=== PATIENT | female | born 1950 | race Caucasian/White ===

== ENCOUNTER 2019-06-01 15:04 | Inpatient (IN) | payer MEDICARE, BC ==
[~2019-06-01] VITALS: Ht 162.6 cm; Wt 102.1 kg
[2019-06-01] MEDS ORDERED: LOVA40 (15:13)
[2019-06-01 16:23] LABS: BASOPHILS ABSOLUTE AUTO 0.04 K/mm3 (0.00-0.23); BASOPHILS PERCENT AUTO 0 % (0-2); EOSINOPHILS PERCENT AUTO 1 % (0-6); Hematocrit 41.5 % (33.0-51.0); Hemoglobin 13.5 g/dL (11.5-16.0); IMMATURE GRAN ABSOLUTE AUTO 0.05 K/mm3 (0.00-0.10); IMMATURE GRAN PERCENT AUTO 1 % (0-1); LYMPHOCYTES ABSOLUTE AUTO 1.16 K/mm3 (0.84-5.20); LYMPHOCYTES PERCENT AUTO 11 % (21-46); MONOCYTES PERCENT AUTO 6 % (4-13); Mean Corpuscular HGB 30.7 pg (26.0-34.0); Mean Corpuscular HGB Conc 32.5 g/dL (31.5-36.5); Mean Corpuscular Volume 94 fL (80-100); Mean Platelet Volume 10.6 fL (9.1-12.4); NEUTROPHILS PERCENT AUTO 81 % (41-73); Platelet Count 182 K/mm3 (150-400); RDW Coefficient Variation 12.4 % (11.7-14.2); RDW Standard Deviation 42.7 fL (35.1-46.3); White Blood Cell Count 10.35 K/mm3 (4.00-11.30)
[2019-06-01 16:50] LABS: Albumin, Blood 3.9 g/dL (3.4-5.0); Albumin/Globulin Ratio 1.3 (0.8-1.8); Bilirubin, Total 0.8 mg/dL (0.1-1.0); Bun/Creatinine Ratio 18.3 (12.0-20.0); Calcium, Blood 10.1 mg/dL (8.5-10.1); Creatinine, Blood 1.04 mg/dL (0.40-1.00); Potassium, Blood 3.8 mmol/L (3.5-5.5); Total Protein, Blood 6.9 g/dL (6.4-8.2)
[2019-06-01] MEDS ORDERED: LOSARTAN-HCTZ1 EAC2 PO (17:52)
[2019-06-01] MEDS ORDERED: Crestor20 MG PO (17:53)
[2019-06-01] MEDS ORDERED: METO100ER PO (17:53)
[2019-06-01] MEDS ORDERED: Aspirin EC81 MG PO (18:15)
[2019-06-01] MEDS ORDERED: GLUCOSAMINE-CH1 EA19 PO (18:16)
[2019-06-01] MEDS ORDERED: CO Q-10100 MG PO (18:17)
[2019-06-01] MEDS ORDERED: THERA1 EACH PO (18:17)
[2019-06-01] MEDS ORDERED: CHOL10002 PO (18:17)
[2019-06-02 04:45] LABS: BASOPHILS ABSOLUTE AUTO 0.04 K/mm3 (0.00-0.23); BASOPHILS PERCENT AUTO 1 % (0-2); EOSINOPHILS ABSOLUTE AUTO 0.19 K/mm3 (0.00-0.68); EOSINOPHILS PERCENT AUTO 2 % (0-6); Hematocrit 39.5 % (33.0-51.0); Hemoglobin 12.8 g/dL (11.5-16.0); IMMATURE GRAN ABSOLUTE AUTO 0.03 K/mm3 (0.00-0.10); IMMATURE GRAN PERCENT AUTO 0 % (0-1); LYMPHOCYTES ABSOLUTE AUTO 0.77 K/mm3 (0.84-5.20); LYMPHOCYTES PERCENT AUTO 9 % (21-46); MONOCYTES ABSOLUTE AUTO 0.43 K/mm3 (0.16-1.47); MONOCYTES PERCENT AUTO 5 % (4-13); Mean Corpuscular HGB 30.8 pg (26.0-34.0); Mean Corpuscular HGB Conc 32.4 g/dL (31.5-36.5); Mean Corpuscular Volume 95 fL (80-100); Mean Platelet Volume 10.5 fL (9.1-12.4); NEUTROPHILS ABSOLUTE AUTO 6.75 K/mm3 (1.96-9.15); NEUTROPHILS PERCENT AUTO 82 % (41-73); Platelet Count 142 K/mm3 (150-400); RDW Coefficient Variation 12.4 % (11.7-14.2); RDW Standard Deviation 43.5 fL (35.1-46.3); Red Blood Cell Count 4.15 M/mm3 (3.80-5.20); White Blood Cell Count 8.21 K/mm3 (4.00-11.30)
[2019-06-02 05:12] LABS: Alanine Aminotransfer (ALT/SGP 24 U/L (12-78); Albumin, Blood 3.4 g/dL (3.4-5.0); Albumin/Globulin Ratio 1.2 (0.8-1.8); Alk Phos 85 U/L (50-136); Anion Gap 5 mmol/L (6-16); Aspartate Aminotrans (AST/SGOT 13 U/L (12-37); Bilirubin, Total 1.3 mg/dL (0.1-1.0); Blood Urea Nitrogen 18 mg/dL (8-24); Bun/Creatinine Ratio 23.7 (12.0-20.0); CO2, Blood 29 mmol/L (21-32); Chloride, Blood 107 mmol/L (98-108); Creatinine, Blood 0.76 mg/dL (0.40-1.00); Globulin, Blood 2.8 g/dL (2.2-4.0); Glomerular Filtration Rate >60 (60-); Glucose, Blood 120 mg/dL (70-99); Potassium, Blood 3.8 mmol/L (3.5-5.5); Sodium, Blood 141 mmol/L (136-145); Total Protein, Blood 6.2 g/dL (6.4-8.2)
--- NOTE | 2019-06-02 10:27 | NUR ---
DR FERGUSON IN TO SEE PT.
--- NOTE | 2019-06-02 11:46 | NUR ---
PT TO SURGERY
--- NOTE | 2019-06-02 12:53 | NUR ---
"DAY SURGERY RN | PATIENT TO OR Both doctors saw patient. Meds given per written orders. Family at bedside. Patient to OR."
--- NOTE | 2019-06-02 14:02 | NUR ---
06/02/19 1402 Gregoria Martin PT ENTERED OR WITH HURTADO CATHETER
--- NOTE | 2019-06-02 17:09 | NUR ---
PT ARRIVED BACK TO ROOM FROM PACU PLACED ON 2L O2 FOR SATS OF 89% ON RA. NOW 92% ON 2L. AQUACEL DRESSING TO R HIP CDI. ICE PACK IN PLACE. PT REPORTS MINIMAL PAIN AT THIS TIME. PROVIDED ICE CHIPS, WATER; DICK MIST PER PT REQUEST. GUESTS AT BEDSIDE.
[2019-06-03 04:24] LABS: BASOPHILS ABSOLUTE AUTO 0.02 K/mm3 (0.00-0.23); BASOPHILS PERCENT AUTO 0 % (0-2); EOSINOPHILS ABSOLUTE AUTO 0.01 K/mm3 (0.00-0.68); EOSINOPHILS PERCENT AUTO 0 % (0-6); Hematocrit 29.3 % (33.0-51.0); Hemoglobin 9.5 g/dL (11.5-16.0); IMMATURE GRAN ABSOLUTE AUTO 0.04 K/mm3 (0.00-0.10); IMMATURE GRAN PERCENT AUTO 0 % (0-1); LYMPHOCYTES ABSOLUTE AUTO 0.83 K/mm3 (0.84-5.20); LYMPHOCYTES PERCENT AUTO 8 % (21-46); MONOCYTES PERCENT AUTO 6 % (4-13); Mean Corpuscular HGB 30.2 pg (26.0-34.0); Mean Corpuscular HGB Conc 32.4 g/dL (31.5-36.5); Mean Corpuscular Volume 93 fL (80-100); Mean Platelet Volume 10.4 fL (9.1-12.4); NEUTROPHILS ABSOLUTE AUTO 8.77 K/mm3 (1.96-9.15); NEUTROPHILS PERCENT AUTO 85 % (41-73); Platelet Count 133 K/mm3 (150-400); RDW Coefficient Variation 12.3 % (11.7-14.2); RDW Standard Deviation 41.8 fL (35.1-46.3); Red Blood Cell Count 3.15 M/mm3 (3.80-5.20); White Blood Cell Count 10.27 K/mm3 (4.00-11.30)
[2019-06-03 04:50] LABS: Anion Gap 6 mmol/L (6-16); Blood Urea Nitrogen 18 mg/dL (8-24); Bun/Creatinine Ratio 22.9 (12.0-20.0); CO2, Blood 27 mmol/L (21-32); Calcium, Blood 8.6 mg/dL (8.5-10.1); Chloride, Blood 104 mmol/L (98-108); Creatinine, Blood 0.79 mg/dL (0.40-1.00); Glomerular Filtration Rate >60 (60-); Glucose, Blood 134 mg/dL (70-99); Magnesium, Blood 1.8 mg/dL (1.6-2.4); Potassium, Blood 4.3 mmol/L (3.5-5.5); Sodium, Blood 137 mmol/L (136-145)
--- NOTE | 2019-06-03 07:24 | NUR ---
SUMMARY PT OOB FOR FEW STEPS TONIGHT. REPORTS SHE WAS BRIEFLY LIGHT HEADED AND NAUSEATED WHICH QUICKLY RESOLVED. TOLERATING REPOSITIONING. VERB ADEQUATE PAIN CONTROL. BRYANT VASQUEZ AM.
--- NOTE | 2019-06-03 18:10 | NUR ---
SUMMARY NO ACUTE CHANGES T/O SHIFT. PAIN WELL CONTROLLED PER EMAR. PT WORKED W/THERAPY, SAT UP IN CHAIR AND AMBULATED TO AND FROM RESTROOM USING GAIT BELT AND FWW. SITTING IN RECLINER AT THIS TIME. CALL LIGHT IN REACH.
[2019-06-04 05:07] LABS: BASOPHILS ABSOLUTE AUTO 0.04 K/mm3 (0.00-0.23); BASOPHILS PERCENT AUTO 1 % (0-2); EOSINOPHILS PERCENT AUTO 5 % (0-6); Hematocrit 27.6 % (33.0-51.0); Hemoglobin 9.1 g/dL (11.5-16.0); IMMATURE GRAN ABSOLUTE AUTO 0.01 K/mm3 (0.00-0.10); IMMATURE GRAN PERCENT AUTO 0 % (0-1); LYMPHOCYTES ABSOLUTE AUTO 1.21 K/mm3 (0.84-5.20); LYMPHOCYTES PERCENT AUTO 19 % (21-46); MONOCYTES ABSOLUTE AUTO 0.63 K/mm3 (0.16-1.47); MONOCYTES PERCENT AUTO 10 % (4-13); Mean Corpuscular HGB 31.5 pg (26.0-34.0); Mean Platelet Volume 10.8 fL (9.1-12.4); NEUTROPHILS ABSOLUTE AUTO 4.11 K/mm3 (1.96-9.15); NEUTROPHILS PERCENT AUTO 65 % (41-73); Platelet Count 104 K/mm3 (150-400); RDW Coefficient Variation 12.4 % (11.7-14.2); RDW Standard Deviation 43.6 fL (35.1-46.3); Red Blood Cell Count 2.89 M/mm3 (3.80-5.20)
[2019-06-04 05:11] LABS: Mean Corpuscular Volume 96 fL (80-100)
[2019-06-04 05:19] LABS: Anion Gap 4 mmol/L (6-16); Blood Urea Nitrogen 20 mg/dL (8-24); Bun/Creatinine Ratio 21.9 (12.0-20.0); CO2, Blood 28 mmol/L (21-32); Calcium, Blood 8.9 mg/dL (8.5-10.1); Chloride, Blood 107 mmol/L (98-108); Creatinine, Blood 0.91 mg/dL (0.40-1.00); Glomerular Filtration Rate >60 (60-); Glucose, Blood 106 mg/dL (70-99); Potassium, Blood 4.1 mmol/L (3.5-5.5); Sodium, Blood 139 mmol/L (136-145)
--- NOTE | 2019-06-04 07:19 | NUR ---
SHIFT SUMMARY PT RESTED WELL T/O NIGHT. AAOX4. POD#2. DRESSING TO RIGHT HIP C/D/I. UP TO RESTROOM WITH FWW, SBA. NO ACUTE CHANGES THIS SHIFT. PT RESTING WELL AT THIS TIME, SAKSHI. REPORT TO DAY SHIFT RN. CALL LIGHT IN REACH.
--- NOTE | 2019-06-04 16:24 | NUR ---
SHIFT SUMMARY PT A&OX4, VSS, POD2 R ROBSON, AQUACEL DRESSING CHANGED TODAY, CDI, TEDS/SCDS, ELEVATED. AMB SBA W/FWW TO BRP AND HALLWAY. PAIN MANAGED PER EMAR. PRAMOD PO, DENIES N&V. PT SHOWERED TODAY, UP TO CHAIR T/O SHIFT, WORKED WITH PHYSICAL THERAPY. FAMILY AT BEDSIDE. WCTM & TX PER EMAR UNTIL REPORT GIVEN TO ONCOMING CHAVA RN.
--- NOTE | 2019-06-05 03:00 | NUR ---
SHIFT SUMMARY: PATIENT DOING WELL, AMBULATING REGULARLY TO BATHROOM WITH 1 PERSON ASSIST AND FWW. VSS, X1 PRN PAIN MEDICATION THIS SHIFT, EATING SNACKS AND PRODUCING GAS. NO OTHER ISSUES NOTED.
--- NOTE | 2019-06-05 16:12 | NUR ---
SHIFT SUMMARY PT A&OX4, VSS, POD3 R ROBSON, AQUACEL CDI - CHANGED TODAY FOR MOD SANG DRAINAGE, TEDS/SCDS/ICE ON AND ELEVATED. AMB W/FWW AND SBA TO BRP/HALLWAY AND SAT IN CHAIR T/O SHIFT. PAIN MANAGED W/TYLENOL, TORADOL AND 1 PERC TODAY. PRAMOD PO, DENIES N&V. WCTM & TX PER EMAR UNTIL REPORT GIVEN TO ONCOMING CHAVA MULLINS.
--- NOTE | 2019-06-06 05:26 | NUR ---
SHIFT SUMMARY PT POD#4. AAOX4. DISCOMFORT AT TOLERABLE LEVEL T/O NIGHT WITH SCHEDULED TYLENOL + TORADOL. NO NAUSEA/EMESIS. AQUACEL DRESSING TO RIGHT HIP, QUARTER SIZE DRAINAGE X3, NO CHANGE THIS SHIFT. SBA UP TO RESTROOM, TOLERATED WELL. ENCOURAGE AMBULATION TODAY TOLERATED. POSSIBLE SNF TRANSFER. PT RESTING WITH CALL LIGHT IN REACH AT THIS TIME.
--- NOTE | 2019-06-06 15:43 | NUR ---
DISCHARGE PT DISCHARGED TO SNF AT APPROXIMATELY 1508. PT ALERT AND ORIENTED AT TIME OF DISCHARGE. VSS. PACKET WITH CLEAN DRESSINGS SENT WITH PATIENT. PT ESCORTED OUT IN W/C.
== END 2019-06-06 15:08 | DRG 470 ==
LOC: ER 15:04 → ERHOLD 17:51 → SURS 17:51
PROVIDERS: Family Medicine; Orthopaedic Surgery; Physician Assistant; ADMIT Internal Medicine
PROC: 0SR90JZ Replacement of Right Hip Joint with Synthetic Substitute, Open Approach (ICD-10-PCS; principal; 2019-06-02 12:30)
DX: S72.001A Fracture of unspecified part of neck of right femur, initial encounter for closed fracture (principal); E78.5 Hyperlipidemia, unspecified; I10 Essential (primary) hypertension; W17.89XA Other fall from one level to another, initial encounter; D64.9 Anemia, unspecified
CPT/HCPCS: 36415; 51702; 71045; 72170; 73502; 80048; 80053; 83735; 85025; 86850; 86900; 86901; 88305; 88311; 93005; 93010; 96374; 96375; 97110; 97116; 97161; 97166; 97530; 97535; 99284-25; C1713; C1776; J0171; J0690; J0735; J1100; J1170; J1885; J2250; J2370; J2405; J2704; J2710; J2795; J3010; J7030; J7120

== ENCOUNTER → 2020-06-19 | Outpatient (CLI) | payer MEDICARE, BC ==
[~2020-06-19] MED LIST: Aspirin EC81 MG PO; CHOL10002 PO; CO Q-10100 MG PO; Crestor20 MG PO; GLUCOSAMINE-CH1 EA19 PO; LOSARTAN-HCTZ1 EAC2 PO; LOVA40; METO100ER PO; THERA1 EACH PO
== END | disposition home or self-care (01) ==
LOC: LAB SHORT 14:07 → LAB 14:07
DX: L08.9 Local infection of the skin and subcutaneous tissue, unspecified (principal)
CPT/HCPCS: 87070; 87075; 87205

== ENCOUNTER → 2020-07-24 | Outpatient (CLI) | payer MEDICARE, BC | END | disposition home or self-care (01) | LOC: PLD 13:46 → LAB SHORT 13:46 | DX: D22.5 Melanocytic nevi of trunk (principal) | CPT/HCPCS: 88305 ==

== ENCOUNTER → 2020-12-06 | Outpatient (CLI) | payer MEDICARE, BC ==
[2020-12-06 13:37] LABS: Alanine Aminotransfer (ALT/SGP 27 U/L (12-78); Albumin/Globulin Ratio 1.4 (0.8-1.8); Alk Phos 72 U/L (40-126); Anion Gap 10 mmol/L (6-16); Aspartate Aminotrans (AST/SGOT 14 U/L (12-37); Bilirubin, Total 0.7 mg/dL (0.1-1.0); Blood Urea Nitrogen 18 mg/dL (8-24); CO2, Blood 26 mmol/L (21-32); Calcium, Blood 10.1 mg/dL (8.5-10.1); Chloride, Blood 103 mmol/L (98-108); Creatinine, Blood 0.75 mg/dL (0.40-1.00); Globulin, Blood 2.9 g/dL (2.2-4.0); Glomerular Filtration Rate >60 (60-); Glucose, Blood 108 mg/dL (70-99); Sodium, Blood 139 mmol/L (136-145); Total Protein, Blood 6.9 g/dL (6.4-8.2)
== END | disposition home or self-care (01) ==
LOC: LAB SHORT 13:16 → LAB EV 13:16
PROVIDERS: Physician Assistant Surgical
DX: R10.32 Left lower quadrant pain (principal)
CPT/HCPCS: 80053

== ENCOUNTER 2024-03-18 08:40 | Day surgery (SDC) | payer MEDICARE, BC ==
[~2024-03-18] VITALS: Ht 157.5 cm; Wt 102.8 kg
[2024-03-18] VITALS (16 sets, daily range): BP systolic 94–140; BP diastolic 60–81
[~2024-03-18 08:40] MED LIST changes: +ACET500 PO; +ASPI81CH PO; +Acetaminophen 500 MG Tab PO SCH; +CELE200 PO; -CHOL10002 PO; +CeFAZolin Sodium 2,000 MG in NS 100 ML IV SCH; +Chlorhexidine Mouth Care 15 ML UDC MT SCH; +ELIQUIS2.5 MG PO; +Lactated Ringer's 1,000 ML IV SCH; +OxyCODONE HCL 10 MG TABCR PO SCH; +Percocet 5-3251 EACH PO; +Ropivacaine 0.5% HCl/Pf 123.125 MG,EPINEPHrine HCL 0.25 MG,Ketorolac Tromethamine 15 MG... INFIL SCH; +Tranexamic Acid 100 ML IV SCH; +VITAMIN D3 PO; +WEGOVY1 MG/0.5 M SC
[2024-03-18] MEDS ORDERED: ZYRTEC10 M4 PO (08:54)
--- NOTE | 2024-03-18 09:18 | NUR ---
Ambulatory in Day Surgery History, Chart, Medications and Allergies reviewed before start of procedure. Pre-Op teaching done. Pt verbalizes understanding.
[2024-03-18] MEDS ORDERED: propofoL 60 ML IV ONE ×2 (09:19→11:11)
[2024-03-18] MEDS ORDERED: FentaNYL Citrate 50 MCG/ML 2 ML Injection ONE (09:19)
[2024-03-18] MEDS ORDERED: Bisacodyl 10 MG Supp PR PRN (09:45)
[2024-03-18] MEDS ORDERED: OxyCODONE HCL 5 MG TAB PO PRN ×2 (09:50)
[2024-03-18] MEDS ORDERED: Lactated Ringer's 1,000 ML IV SCH (09:50)
[2024-03-18] MEDS ORDERED: Magnesium Hydroxide Conc 10 ML UDC PO PRN (09:50)
[2024-03-18] MEDS ORDERED: Promethazine HCl 25 MG Tab PO PRN (09:50)
[2024-03-18] MEDS ORDERED: Metoclopramide HCl 5MG / ML 2ML Vial IV PRN (09:50)
[2024-03-18] MEDS ORDERED: Ondansetron HCl 2 MG / ML 2ML Vial IV PRN (09:55)
[2024-03-18] MEDS ORDERED: HYDROmorphone HCl/Pf 1MG SYR IV PRN (09:55)
[2024-03-18] MEDS ORDERED: DiphenhydrAMINE HCL 25 MG Cap PO PRN (09:55)
[2024-03-18] MEDS ORDERED: ePHEDrine Sulfate 50 MG/ML 1ML Injection ONE (10:26)
[2024-03-18] MEDS ORDERED: Acetaminophen 500 MG Tab PO SCH (16:00)
[2024-03-18] MEDS ORDERED: CeFAZolin Sodium 2,000 MG in NS 100 ML IV SCH (18:00)
[2024-03-18] MEDS ORDERED: Ketorolac Tromethamine 15mg Vial IV SCH (18:00)
--- NOTE | 2024-03-18 18:59 | NUR ---
SHIFT SUMMARY: PT ARRIVED TO SURGICAL FLOOR VIA HOSPITAL BED FROM OR. POD 0 LTKA. EATING, DRINKING, AND VOIDING WELL. INCISION SITE COVERED WITH AQUACEL, C/D/I. VSS. PPP. A&O X4. PAIN MANAGED WELL WITH TORDOL AND TYLENOL. HAS NOT BEEN ABLE TO AMBULATE YET, SPINAL IS STILL WEARING OFF. PT REPORTS NUMBNESS IN AREAS AND STILL UNABLE TO LIFT LEFT LEG UP. PLANNING TO WORK WITH PT/OT IN THE AM. CALL LIGHT WITHIN REACH.
[2024-03-18] MEDS ORDERED: Rosuvastatin Calcium 10 MG Tab PO SCH (21:00)
[2024-03-18] MEDS ORDERED: Loratadine 10 MG Tab PO SCH (21:00)
[2024-03-18] MEDS ORDERED: Docusate Sodium 100 MG Cap PO SCH (21:00)
[2024-03-18] MEDS ORDERED: Metoprolol Succinate 50 MG TABCR PO SCH (21:00)
[2024-03-19 00:08] VITALS: BP 114/64
[2024-03-19 03:05] VITALS: BP 111/57
--- NOTE | 2024-03-19 03:14 | NUR ---
ANTIBIOTIC AND IV UPDATE PTS IV INFILTRATED WHEN 2ND ABX DOSE WAS STARTED. PT REQUESTED TO NOT HAVE A NEW IV PLACED. EDUCATED ABOUT RISKS W/NOT TAKING PRESCRIBED MEDICATION, SUCH AN INFECTION. PT VERBALIZED UNDERSTANDING AND STATED SHE WOULD HAVE A NEW IV PLACED IF THE SURGEON WANTED HER TO HAVE AN IV THAT SHE WOULD ALLOW ONE TO BE PLACED.
[2024-03-19 04:51] LABS: BASOPHILS ABSOLUTE AUTO 0.05 K/mm3 (0.00-0.23); BASOPHILS PERCENT AUTO 1 % (0-2); EOSINOPHILS ABSOLUTE AUTO 0.33 K/mm3 (0.00-0.68); EOSINOPHILS PERCENT AUTO 4 % (0-6); Hematocrit 33.7 % (33.0-51.0); Hemoglobin 11.1 g/dL (11.5-16.0); IMMATURE GRAN ABSOLUTE AUTO 0.03 K/mm3 (0.00-0.10); IMMATURE GRAN PERCENT AUTO 0 % (0-1); LYMPHOCYTES ABSOLUTE AUTO 1.26 K/mm3 (0.84-5.20); LYMPHOCYTES PERCENT AUTO 16 % (21-46); MONOCYTES PERCENT AUTO 12 % (4-13); Mean Corpuscular HGB 30.7 pg (26.0-34.0); Mean Corpuscular HGB Conc 32.9 g/dL (31.5-36.5); Mean Corpuscular Volume 93 fL (80-100); Mean Platelet Volume 10.1 fL (9.1-12.4); NEUTROPHILS ABSOLUTE AUTO 5.15 K/mm3 (1.96-9.15); NEUTROPHILS PERCENT AUTO 67 % (41-73); Platelet Count 147 K/mm3 (150-400); RDW Coefficient Variation 12.3 % (11.7-14.2); Red Blood Cell Count 3.62 M/mm3 (3.80-5.20); White Blood Cell Count 7.72 K/mm3 (4.00-11.30)
--- NOTE | 2024-03-19 05:09 | NUR ---
SHIFT SUMMARY POD1 L TKA. STACEY IS C/DI. SENSATION AND CIRCULATION REMAINS INTACT IN LLE. BRUISING NOTED AROUND KNEE AND THIGH. VSS. PT SLEPT ON AND OFF T/O THE NIGHT. WAS ABLE TO AMBULATE TO BATHROOM W/ MIN ASSIST. TOLLERATING PO INTAKE W/O N/V. PAIN BEING MANAGED W/OXY AND SCHEDULED. PLEASE SEE PREVIOUS NOTE CONCERNING IV MEDICATION. NO ACUTE EVENTS NOTED T/O THE NIGHT. PLAN FOR PT TO WORK WITH PHYSICAL THERAPY TODAY AND D/C HOME.
[2024-03-19 05:16] LABS: Bun/Creatinine Ratio 18.2 (12.0-20.0); Calcium, Blood 9.5 mg/dL (8.5-10.1); Creatinine, Blood 0.71 mg/dL (0.40-1.00); Potassium, Blood 4.2 mmol/L (3.5-5.5)
[2024-03-19 07:33] VITALS: BP 148/72
[2024-03-19] MEDS ORDERED: Multivitamins 1 Tab PO SCH (09:00)
[2024-03-19] MEDS ORDERED: Losartan Potassium 50 MG Tab PO SCH (09:00)
[2024-03-19] MEDS ORDERED: COENZYME Q10 200 MG PO SCH (09:00)
[2024-03-19] MEDS ORDERED: Aspirin 81 MG Chew PO SCH (09:00)
[2024-03-19] MEDS ORDERED: Cholecalciferol 1000 Unit Tablet (=25MCG) PO SCH (09:00)
[2024-03-19] MEDS ORDERED: HydroCHLOROthiazide 25 mg Tab PO SCH (09:00)
--- NOTE | 2024-03-19 12:16 | NUR ---
DISCHARGE DISCHARGE INSTRUCTIONS GIVEN. QUESTIONS ANSWERED. NO IV IN PLACE. PATIENT BELONGINGS GIVEN TO SON. PATIENT UP TO WHEELCHAIR STAND BY ASSIST. OUT OF ROOM TO VEHICLE NO ASSISTANCE NEEDED. NO DISTRESS NOTED.
[2024-03-22] MEDS ORDERED: SEMAGLUTIDE 1 MG/0.5 ML SC SCH (09:00)
== END 2024-03-19 11:18 | disposition home or self-care (01) ==
LOC: ORSCMMR 08:40 → ORD 10:00 → ORSCMMR 10:00 → SURS 13:18 → ORSCMMR 03-19 11:18
PROVIDERS: Orthopaedic Surgery
PROC: 0SRD0JA Replacement of Left Knee Joint with Synthetic Substitute, Uncemented, Open Approach (ICD-10-PCS; principal; 2024-03-18 10:00)
DX: M17.12 Unilateral primary osteoarthritis, left knee (principal); Z96.651 Presence of right artificial knee joint; I10 Essential (primary) hypertension; E78.5 Hyperlipidemia, unspecified; Z79.899 Other long term (current) drug therapy; E66.01 Morbid (severe) obesity due to excess calories; Z68.41 Body mass index [BMI] 40.0-44.9, adult
CPT/HCPCS: 36415; 73560-LT; 80048; 85025; 97116; 97161; A9270; C1713; C1776; J0171; J0690; J0735; J1885; J2704; J2795; J3010; J7120